=== PATIENT | male | born 1950 | race Caucasian/White ===

== ENCOUNTER → 2016-11-24 | Outpatient (CLI) | payer MEDICARE ==
[~2016-11-24] MED LIST: ASCO500T8 PO; FURO-92 PO; FURO-93 PO; FURO20TA3 PO; MULT-717 PO; OMEP-110 PO; OMNIPAQUE 350 MG/ML, 100ML BOTTLE ONE; RANI150T8 PO; SPIR25TA3 PO; SPIR50TA PO; VITA1CAP PO; VITA400C43 PO; calcium,mag,zinc PO
== END | disposition home or self-care (01) ==
LOC: CFH 13:17
PROVIDERS: ATTEND Internal Medicine Geriatric Medicine
DX: K70.31 Alcoholic cirrhosis of liver with ascites (principal); M48.56XA Collapsed vertebra, not elsewhere classified, lumbar region, initial encounter for fracture; J90 Pleural effusion, not elsewhere classified; K82.8 Other specified diseases of gallbladder; N20.0 Calculus of kidney
CPT/HCPCS: 74170; 82565; Q9967

== ENCOUNTER 2017-03-21 11:07 | Day surgery (SDC) | payer MEDICARE ==
[~2017-03-21] VITALS: Ht 193 cm; Wt 108.2 kg
[~2017-03-21 11:07] MED LIST changes: -OMNIPAQUE 350 MG/ML, 100ML BOTTLE ONE
[2017-03-21] MEDS ORDERED: LACTATED RINGERS 1,000 ML IV SCH (11:45)
[2017-03-21 11:55] VITALS: BP 128/86
[2017-03-21] MEDS ORDERED: PLEASE ENTER HEIGHT AND WEIGHT MC SCH (12:00)
[2017-03-21 12:40] LABS: ALANINE AMINOTRANSFERASE 23 U/L (12-78); ALBUMIN 3.7 g/dL (3.4-5.0); ANION GAP 8 mmol/L (5-15); CALCIUM 8.8 mg/dL (8.5-10.1); CHLORIDE 107 mmol/L (98-107)
[2017-03-21 12:43] LABS: ALKALINE PHOSPHATASE 143 U/L (45-117); CREATININE 1.01 mg/dL (0.7-1.3); TOTAL PROTEIN 8.4 g/dL (6.4-8.2)
[2017-03-21] MEDS ORDERED: LIDOCAINE-MPF 2% ,5ML ONE (14:04)
[2017-03-21] MEDS ORDERED: PROPOFOL 10 MG/ML, 20ML ONE (14:04)
== END 2017-03-21 15:52 ==
LOC: OUT 11:07
PROVIDERS: ATTEND Internal Medicine Geriatric Medicine
DX: K22.719 Barrett's esophagus with dysplasia, unspecified (principal); F17.200 Nicotine dependence, unspecified, uncomplicated
CPT/HCPCS: 36415; 43270; 80053; 93005; J2704; J3490; J7120

== ENCOUNTER 2017-05-23 08:08 | Day surgery (SDC) | payer MEDICARE ==
[~2017-05-23] VITALS: Ht 193 cm; Wt 106.2 kg
[2017-05-23] MEDS ORDERED: LIDOCAINE-MPF 1%, 2ML ONE (08:21)
[2017-05-23] MEDS ORDERED: LACTATED RINGERS 1,000 ML IV SCH (08:28)
[2017-05-23 08:29] VITALS: BP 146/89
[2017-05-23] MEDS ORDERED: LIDOCAINE-MPF 1%, 2ML INFIL ONE (08:30)
[2017-05-23] MEDS ORDERED: PROPOFOL 10 MG/ML, 20ML ONE ×3 (08:47→08:57)
[2017-05-23] MEDS ORDERED: LIDOCAINE-MPF 2% ,5ML ONE (08:57)
[2017-05-23] MEDS ORDERED: PLEASE ENTER HEIGHT AND WEIGHT MC SCH (09:00)
== END 2017-05-23 10:30 ==
LOC: OUT 08:08
PROVIDERS: ATTEND Internal Medicine Geriatric Medicine
DX: K22.719 Barrett's esophagus with dysplasia, unspecified (principal); K21.9 Gastro-esophageal reflux disease without esophagitis; K74.69 Other cirrhosis of liver; Z79.899 Other long term (current) drug therapy; F17.210 Nicotine dependence, cigarettes, uncomplicated
CPT/HCPCS: 43270; J2704; J3490; J7120

== ENCOUNTER → 2017-10-10 | Outpatient (CLI) | payer MEDICARE ==
[~2017-10-10] MED LIST changes: +RANI150T23 PO; -RANI150T8 PO; -SPIR25TA3 PO; +SPIR25TA5 PO
== END | disposition home or self-care (01) ==
LOC: CFH 10:17
PROVIDERS: ATTEND Internal Medicine Geriatric Medicine
DX: K74.69 Other cirrhosis of liver (principal); K80.20 Calculus of gallbladder without cholecystitis without obstruction; R16.1 Splenomegaly, not elsewhere classified
CPT/HCPCS: 93975

== ENCOUNTER → 2019-05-22 | Outpatient (CLI) | payer MEDICARE ==
[~2019-05-22] MED LIST changes: +RANI-467 PO; -RANI150T23 PO
== END | disposition home or self-care (01) ==
LOC: CFH 08:12
PROVIDERS: ATTEND Internal Medicine Geriatric Medicine
DX: K70.31 Alcoholic cirrhosis of liver with ascites (principal); K80.50 Calculus of bile duct without cholangitis or cholecystitis without obstruction
CPT/HCPCS: 76700

== ENCOUNTER → 2019-10-23 | Outpatient (CLI) | payer MEDICARE | END | disposition home or self-care (01) | LOC: CFH 10:24 | PROVIDERS: ATTEND Internal Medicine Geriatric Medicine | DX: K70.31 Alcoholic cirrhosis of liver with ascites (principal); K80.20 Calculus of gallbladder without cholecystitis without obstruction | CPT/HCPCS: 76700 ==